=== PATIENT | female | born 1945 | race Caucasian/White ===

== ENCOUNTER 2021-01-10 13:35 | Emergency (ER) | payer MEDICARE ==
[~2021-01-10] VITALS: Ht 152.4 cm; Wt 47.7 kg
[2021-01-10 14:09] LABS: HEMOGLOBIN 14.7 g/dl (12.0-16.0); IMMATURE GRANULOCYTES 0.2 % (0.0-5.0); MEAN CELL VOLUME 93.9 fL CALC (80.0-100.0); NEUT# 5.38 thou/uL (2.00-7.15); RED BLOOD COUNT 4.9 mill/uL (4.20-5.60); RED CELL DISTRI WIDTH 13.3 % (11.5-15.5)
[2021-01-10 14:10] LABS: URINE BILIRUBIN - DIPSTICK NEGATIVE (NEGATIVE); URINE BLOOD DIPSTICK SMALL (NEGATIVE); URINE CLARITY SL CLOUDY; URINE COLOR YELLOW; URINE GLUCOSE - DIPSTICK NEGATIVE (NEGATIVE); URINE KETONE NEGATIVE (NEGATIVE); URINE LEUK ESTERASE NEGATIVE (Negative); URINE NITRITE - DIPSTICK NEGATIVE (Negative); URINE PROTEIN - DIPSTICK NEGATIVE (NEG-TRACE); URINE SPECIFIC GRAVITY 1.015; URINE UROBILINOGEN - DIPSTICK 0.2 E.U./dL (0.2)
[2021-01-10 14:11] LABS: URINE EPITHELIAL CELLS FEW EPI/hpf (0-FEW)
[2021-01-10] MEDS ORDERED: PROTONIX20 M1 PO (14:14)
[2021-01-10] MEDS ORDERED: NORCO1 TA2 PO (14:15)
[2021-01-10 14:22] LABS: ALBUMIN 4.4 g/dL (3.2-5.0); ALKALINE PHOSPHATASE 67 u/l (38-126); ANION GAP 11 (6-22 (CALC)); BILIRUBIN, TOTAL 0.6 mg/dL (0.0-1.4); BUN 12 mg/dL (8-23); BUN/CREATININE RATIO 16 (12-20 (CALC)); CARBON DIOXIDE 31 mmol/l (22-30); CHLORIDE 103 mmol/l (95-108); CREATININE 0.8 mg/dL (0.5-1.0); GFR > 60 ML/MIN (>=60 (CALC)); GFR FOR AFR.AMER. > 60 ML/MIN (>=60 (CALC)); LIPASE 104 u/l (23-300); SGOT/AST 27 u/l (9-36); SODIUM 140 mmol/l (137-146)
[2021-01-10 17:37] VITALS: BP 156/71
== END 2021-01-10 17:37 | disposition home or self-care (01) ==
LOC: ED 13:35
DX: R07.89 Other chest pain (principal); M79.622 Pain in left upper arm; F17.210 Nicotine dependence, cigarettes, uncomplicated; Z20.822 Contact with and (suspected) exposure to COVID-19